=== PATIENT | female | born 2000 | race African-American/Black ===

== ENCOUNTER 2019-12-18 12:45 | Emergency (ER) | payer MEDICAID ==
[~2019-12-18] VITALS: Ht 165.1 cm; Wt 56.7 kg
[2019-12-18 12:55] VITALS: BP 135/78
--- NOTE | 2019-12-18 13:15 | NUR ---
19 Y/O FEMALE FROM HOME C/O NAUSEA AND VOMITING X 2 WKS. STATES 6 WKS , UNABLE TO TOOK ANYTHING DOWN. DENIES PAIN AT THIS TIME. RR EVEN AND UNLABORED, PT PRESENTS SLIGHTLY TACHYCARDIC. LMP 11/07/19. STATES 1ST . VSS MEDHX: ANEMIA, OVARIAN CYST
--- NOTE | 2019-12-18 13:16 | NUR ---
ONEIDA PADILLA AT BEDSIDE EXAMINING PT
--- NOTE | 2019-12-18 13:25 | NUR ---
20G IV PLACED TO LT AC, BLOOD DRAWN AT THIS TIME
[2019-12-18] MEDS: ONDANSETRON 4 MG/2 ML VIAL IVP ONE (13:28)
[2019-12-18 13:32] LABS: BASOPHILS # (AUTO) 0.1 K/uL (0.00-0.22); BASOPHILS % (AUTO) 0.7 % (0.0-2.0); EOSINOPHILS % (AUTO) 0.1 % (0.0-4.0); HEMATOCRIT 40.2 % (36-48); HEMOGLOBIN 13.2 g/dL (12.0-16.0); LYMPHOCYTES # (AUTO) 0.8 K/uL (2.5-16.5); LYMPHOCYTES % (AUTO) 6.5 % (20.5-51.1); MEAN CORPUSCULAR HEMOGLOBIN 29 pg (27-31); MEAN CORPUSCULAR HGB CONC 33 g/dL (33-37); MEAN CORPUSCULAR VOLUME 88.9 fL (80-94); MONOCYTES # (AUTO) 0.7 K/uL (0.8-1.0); MONOCYTES % (AUTO) 5.3 % (1.7-9.3); NEUTROPHILS # (AUTO) 10.8 K/uL (1.8-7.7); NEUTROPHILS % (AUTO) 87.4 % (42.2-75.2); PLATELET COUNT (AUTO) 260 K/uL (140-450); RED BLOOD CELL COUNT(AUTO) 4.52 MIL/uL (4.20-5.40); RED CELL DISTRIBUTION WIDTH 12.5 % (11.6-13.7); WHITE BLOOD COUNT (AUTO) 12.4 K/uL (4.8-10.8)
[2019-12-18] MEDS: NACL 0.9% 1,000 ML IV ONE (13:34)
[2019-12-18 14:30] LABS: ANION GAP 16.6 (8-16); CARBON DIOXIDE 24.5 mmol/L (21-32); CREATININE 1.1 mg/dL (0.6-1.3); POTASSIUM 3.1 mmol/L (3.5-5.1)
[2019-12-18 15:06] VITALS: BP 131/81
--- NOTE | 2019-12-18 15:07 | NUR ---
Patient discharged with v/s stable. Written and verbal after care instructions given and explained. Patient alert, oriented and verbalized understanding of instructions. Ambulatory with steady gait. All questions addressed prior to discharge. ID band removed. Patient advised to follow up with PMD. Rx of JUNIELEOLIVIERS & REGLAN given. Patient educated on indication of medication including possible reaction and side effects. Opportunity to ask questions provided and answered.
== END 2019-12-18 15:07 | disposition home or self-care (01) ==
LOC: MED 12:45
DX: O21.8 Other vomiting complicating pregnancy (principal); O26.891 Other specified pregnancy related conditions, first trimester; E86.0 Dehydration; R03.0 Elevated blood-pressure reading, without diagnosis of hypertension; D64.9 Anemia, unspecified; Z3A.01 Less than 8 weeks gestation of pregnancy; Z88.2 Allergy status to sulfonamides; Z88.1 Allergy status to other antibiotic agents
CPT/HCPCS: 36415; 80048; 81002; 81025; 84702; 85025; 96361; 96374; 99283; J2405; J7030